=== PATIENT | female | born 1940 | race Caucasian/White ===

== ENCOUNTER → 2016-06-11 | Outpatient (CLI) | payer MEDICARE, OTHER ==
[~2016-06-11] MED LIST: ADVAIR DIS14 PUFF/I1 INH; ALBUTEROL1.25 MG/3 INH; ASPIRIN81 MG PO; INCRUSE ELLI62.5 MCG INH; LEVAQUIN500 MG PO; LIPITOR20 MG PO; NORVASC10 MG PO; PRINIVIL10 MG PO; PROAIR HFA8.5 GM INH; PROVENTIL2.5 MG/3 M INH; PROVENTIL2.5 MG/3 M NEB; SPIRIVA18 MCG INH; TOPROL XL50 MG PO
== END | disposition short-term general hospital (02) ==
LOC: CLPULM 05:30
DX: J44.1 Chronic obstructive pulmonary disease with (acute) exacerbation (principal); G47.33 Obstructive sleep apnea (adult) (pediatric); E66.9 Obesity, unspecified; I10 Essential (primary) hypertension; E78.5 Hyperlipidemia, unspecified; K21.9 Gastro-esophageal reflux disease without esophagitis; R60.0 Localized edema; H35.30 Unspecified macular degeneration; Z72.0 Tobacco use

== ENCOUNTER → 2016-07-04 | Outpatient (CLI) | payer MEDICARE, OTHER | END | disposition short-term general hospital (02) | LOC: CLCARD 10:31 | DX: I25.10 Atherosclerotic heart disease of native coronary artery without angina pectoris (principal); E78.5 Hyperlipidemia, unspecified; I10 Essential (primary) hypertension; J44.9 Chronic obstructive pulmonary disease, unspecified; I47.1 Supraventricular tachycardia; E66.9 Obesity, unspecified; Z79.899 Other long term (current) drug therapy; Z87.891 Personal history of nicotine dependence ==